=== PATIENT | female | born 1965 ===

== ENCOUNTER 2019-05-03 12:19 | Emergency (ER) | payer OTHER ==
[2019-05-03 12:58] VITALS: BP 154/100
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
== END 2019-05-03 13:52 | disposition home or self-care (01) ==
LOC: UCEAST 12:19
DX: S09.90XA Unspecified injury of head, initial encounter (principal); Y00.XXXA Assault by blunt object, initial encounter; Y92.211 Elementary school as the place of occurrence of the external cause; Y99.0 Civilian activity done for income or pay
CPT/HCPCS: 99211; G0463